=== PATIENT | male | born 1950 | race Caucasian/White ===

== ENCOUNTER → 2017-03-31 | Outpatient (CLI) | payer OTHER ==
[~2017-03-31] VITALS: Ht 177.8 cm; Wt 86.2 kg
[~2017-03-31] MED LIST: AMBIEN 10 MG TA10 MG PO; ATIVAN0.5 MG PO; AZITHROMYCIN 2250 MG PO; CENTRUM SILVER1 EAC4 PO; COUMADIN 5 MG TA5 M1 PO; COZAAR 50 MG TA50 M2 PO; DIOVAN PO; K-DUR 20 MEQ T20 MEQ; K-DUR 20 MEQ T20 MEQ PO; LASIX 40 MG TAB40 M1 PO; LOPRESSOR25 PO; OMEPRAZOLE40 MG PO
--- NOTE | ~2017-03-31 | P ---
[facility] [place] [address] PROCEDURE REPORT Name: RHIANNA HORTON Room #: REG [facility]#: [id number] Admission: 03/31/17 Attend Phys: Christian Hernandez Discharge: Date of : 48 Report #: [id number] THIS REPORT FOR: //name// CC: Christian Bailey DO DATE OF SERVICE: 03/31/2017 PROCEDURE PERFORMED: Colonoscopy with polypectomies. HISTORY OF PRESENT ILLNESS: The patient is a 66-year-old male who presents today for a screening colonoscopy. Denies any symptoms. No family history of colon cancer. DESCRIPTION OF PROCEDURE: The risks and benefits of the procedure were explained to the patient, those risks including but not limited to bleeding, perforation, the risk of sedation. He understood these risks and gave informed consent. Sedation was given using propofol per anesthesia. Next, a digital rectal exam was initially performed, which was normal. Of note, the patient is on Coumadin. This has been held for the last 5 days. His INR today was 1.1. Next, using a standard [employer] colonoscope, the scope was placed in the patient's anus and advanced under direct vision to the cecum. The overall prep was good. In the cecum, a 6 mm sessile polyp was noted. This was removed by snare cautery, otherwise normal. The ileocecal valve was normal. Ascending, transverse and descending colon were all normal. Multiple diverticula were noted in the sigmoid colon. Also, in the sigmoid colon were 2 polyps, one of which was 5 mm in size, also removed by snare cautery. A smaller one was 4 mm in size and removed by cold forceps. The rectal mucosa was normal. On retroflexion, small nonbleeding internal hemorrhoids were noted, otherwise normal colonoscopy. The scope was then withdrawn and the procedure terminated. The patient tolerated the procedure well. IMPRESSION: 1. Three small colonic polyps. 2. Sigmoid diverticulosis. 3. Internal hemorrhoids. 4. Otherwise, normal colonoscopy. RECOMMENDATIONS: 1. Await biopsy results. 2. Repeat colonoscopy in [address] [address] PROCEDURE REPORT Name: RHIANNA HORTON Room #: REG [facility] Bajwa#: [id number] Admission: 03/31/17 Attend Phys: Christian Hernandez Discharge: Date of : 48 Report #: [id number] Thank you for allowing me to participate in his care. <ELECTRONICALLY SIGNED> By: Christian Catalan MD 04/02/17 1359 0934 [id number] Christian Catalan MD /nt
--- NOTE | ~2017-03-31 | S ---
[facility] [place] [address] SURGICAL PATH RPT PROCEDURE Name: RHIANNA HORTON JR Room #: REG [facility] Ashly.#: [id number] Admission: 03/31/17 Date of : 48 Discharge: Report #: [id number] Path Case #: [id number] PATHOLOGY REPORT COLLECTION DATE: 03/31/2017 RECEIVED DATE: 03/31/2017 SUBMITTING PHYS: Dr. Christian Catalan OTHER PHYS: Dr. Coy Bailey SPECIMEN(S) RECEIVED: A.Polyp at cecum B.Polyp at sigmoid x2 * * * * * * * * * * * * FINAL DIAGNOSIS: A. Polyp, polyp at cecum, endoscopic biopsy: - Tubular adenoma. - Negative for high-grade dysplasia. B. Polyp x 2, at sigmoid colon, endoscopic biopsy: - Tubular adenoma admixed with hyperplastic features present in all fragments sampled. - Negative for high-grade dysplasia. (IUV:pit; 04/01/2017) PATHOLOGIST: Cora Gilliam M.D. REPORT ELECTRONICALLY SIGNED BY: Cora Gilliam M.D. DATE/TIME: 04/01/2017 14:45 * * * * * * * * * * * * GROSS PATHOLOGY: A. Received in formalin labeled "Rhianna Horton , polyp at cecum," is a 0.8 x 0.3 x 0.3 cm polypoid piece of kelly soft tissue with a stalk measuring 0.4 cm in length and 0.2 cm in diameter. The margin of the stalk is inked and the tissue is sectioned perpendicular to the margin and submitted in its entirety in cassette A1. B. Received in formalin labeled "Rhianna Horton Jr, polyp at sigmoid colon 2," is a 0.8 x 0.5 x 0.6 cm polypoid piece of kelly soft tissue. The margin is inked and the tissue is sectioned perpendicular to the margin and submitted in its entirety in cassette B1. Also received in same container is a segment of kelly soft tissue measuring 0.5 cm in maximum dimension, which is also submitted in cassette B1. (TSD; 03/31/2017) CLINICAL HISTORY: Pre-OP DX: Screening [address] [place] [address] SURGICAL PATH RPT PROCEDURE Name: RHIANNA HORTON Jeferson PAL Room #: REG [facility] Aydee#: [id number] Admission: 03/31/17 Date of : 48 Discharge: Report #: [id number] Path Case #: [id number] Post-OP DX: Colon polyps, diverticulosis INITIAL CPT CODE(S): A; 27617 B; 77403 Professional services performed by [facility] at [facility] [address] [place] [address] Technical services performed by [facility] at [address] [place] [address], [facility] [address] [address]. [facility] [address] [address] PHONE: [phone] DIRECTOR: Félix Mccarthy M.D. * * * END OF REPORT * * *
[2017-03-31 09:12] LABS: INR 1.1; PROTIME 11.3 Seconds (9.3-11.4)
== END | disposition home or self-care (01) ==
LOC: GI 07:50
PROVIDERS: Specialist
DX: Z12.11 Encounter for screening for malignant neoplasm of colon (principal); D12.0 Benign neoplasm of cecum; D12.5 Benign neoplasm of sigmoid colon; K57.30 Diverticulosis of large intestine without perforation or abscess without bleeding; K64.8 Other hemorrhoids; I10 Essential (primary) hypertension; K21.9 Gastro-esophageal reflux disease without esophagitis; Z85.828 Personal history of other malignant neoplasm of skin; Z98.890 Other specified postprocedural states; Z79.899 Other long term (current) drug therapy; Z95.1 Presence of aortocoronary bypass graft; Z95.2 Presence of prosthetic heart valve; Z79.01 Long term (current) use of anticoagulants
CPT/HCPCS: 62110; 62900

== ENCOUNTER 2017-04-02 07:26 | Inpatient (IN) | payer OTHER ==
[~2017-04-02] VITALS: Ht 177.8 cm; Wt 83.8 kg
--- NOTE | ~2017-04-02 | EKG ---
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 : 1950 Requested By: Sha Taylor Order Number: [id number] MD: Jimmie Broderick Measurements Intervals [place] Rate: 56 P: -16 [place]: 201 QRS: -66 QRSD: 166 T: 35 QT: 500 QTc: 483 Interpretive Statements Sinus rhythm RBBB and LAFB Compared to ECG 08/23/2010 16:33:02 Left anterior fascicular block now present Right bundle-branch block now present ST (T wave) deviation no longer present Prolonged QT interval no longer present Electronically Signed On 04-02-2017 23:00:57 DOWN FILLER by Jimmie Broderick [email or web address] <ELECTRONICALLY SIGNED> By: Jimmie Broderick MD 04/02/17 2300 0954 0954 Jimmie Broderick MD /EPI
--- NOTE | ~2017-04-02 | HC ---
[facility] [place] [address] CONSULTATION Name: RHIANNA HORTON Room #: 364-P [facility]..#: [id number] Admission: 04/02/17 Attend Phys: Coy Engle DO Discharge: 04/05/17 Date of : 48 Report #: [id number] THIS REPORT FOR: //name// CC: GABRIELLE Kennedy DO DATE OF SERVICE: 04/02/2017 HISTORY OF PRESENT ILLNESS: The patient is a 66-year-old male who underwent a colonoscopy by myself on Wednesday for history of polyps. He had been holding his Coumadin 5 days prior to the procedure. He has a history of mechanical mitral valve replacement. At the time of the colonoscopy, a polyp was removed from the cecum and 2 polyps were removed from the sigmoid colon, multiple diverticula were noted. All polyps were removed by snare cautery. There was no bleeding at that time. We discussed him restarting his Coumadin because of his mitral valve replacement and he began taking Lovenox. Yesterday afternoon, he had a bowel movement with some bright red blood and maroon type stools. He has had a total of 3 bloody bowel movements since then. He has not had further one here in the Emergency Room since this morning. His admit hemoglobin was 12.8. His last dose of Lovenox was yesterday. He denies any abdominal pain. He denies any fevers or chills. No chest pain or shortness of breath. ALLERGIES: No known drug allergies. MEDICATIONS AT HOME: Coumadin, omeprazole, metoprolol. He was taking Lovenox, Cozaar, multivitamin. PAST MEDICAL HISTORY: Hypertrophic obstructive cardiomyopathy, history of mitral valve replacement, hypertension, colon polyps, diverticulosis, previous rotator cuff surgery. REVIEW OF SYSTEMS: As per HPI. SOCIAL HISTORY: He denies any tobacco. He reports occasional alcohol use. FAMILY HISTORY: Negative for colon cancer. PHYSICAL EXAMINATION: VITAL SIGNS: Temperature is 97.7, pulse 55, blood pressure 112/32, respiratory rate is 16. GENERAL: He is alert and oriented x 3 in no acute distress. HEENT: Sclerae nonicteric. Oropharynx clear. NECK: Supple, without lymphadenopathy. [address] [address] CONSULTATION Name: RHIANNA HORTON Room #: 364-P [facility] [id number] Admission: 04/02/17 Attend Phys: Coy Engle DO Discharge: 04/05/17 Date of : 48 Report #: [id number] CARDIOVASCULAR: Regular rate with a valve murmur noted. CHEST: Clear to auscultation bilaterally. ABDOMEN: Soft, nontender, nondistended, normoactive bowel sounds. EXTREMITIES: No cyanosis, clubbing or edema. LABORATORY DATA: Sodium 139, potassium 3.8, chloride 104, bicarbonate 28, BUN 22, creatinine 1.4, glucose 112. His INR is 1.2. WBC is 7.0. Admit hemoglobin 12.8, repeat at 12:51 today is 11.4; MCV 88.9; platelet count is 179. ASSESSMENT AND PLAN: Post-polypectomy bleed. The patient had colonoscopy 2 days ago, 3 polyps were removed as described above. Agree with admission. We will monitor hemoglobin. If there is evidence of further bleeding, may need to consider repeat colonoscopy to find bleeding site. I explained to the patient many times these can just spontaneously stop without intervention as well. We will keep a close eye on the patient and monitor his hemoglobin. In the meantime, hold all anticoagulation therapy. The patient understands and agrees with this plan. Thank you for allowing me to participate in his care. <ELECTRONICALLY SIGNED> By: Christian Catalan MD 04/07/17 0840 1416 2338 Christian Catalan MD /nt
[2017-04-02 08:10] VITALS: BP 141/63
[2017-04-02 08:36] LABS: ABSOLUTE NEUTROPHILS 4.6 thou/uL (1.4-8.2); BASOPHILS 1.1 % (0.0-2.0); EOSINOPHILS 4.3 % (0.0-3.0); HEMATOCRIT 37.7 % (42.0-52.0); HEMOGLOBIN 12.8 gm/dL (14.0-18.0); LYMPHOCYTES 19.8 % (24.0-44.0); MCH 30.1 pg (26.0-34.0); MCHC 33.8 g/dL (28.0-37.0); MCV 88.9 fL (80.0-100.0); MONOCYTES 8.6 % (1.0-8.0); PLATELET COUNT 179 thou/uL (150-400); POLYS 66.2 % (36.0-66.0); RBC 4.25 mil/uL (4.50-6.00); RDW 14.1 % (10.5-14.5)
[2017-04-02 08:44] LABS: ANION GAP 7 mmol/L (7-16); BUN 22 mg/dL (7-18); CALCIUM 8.9 mg/dL (8.5-10.1); CHLORIDE 104 mmol/L (98-107); CO2 28 mmol/L (21-32); CREATININE 1.4 mg/dL (0.7-1.3); GLUCOSE 112 mg/dL (74-106); POTASSIUM 3.8 mmol/L (3.5-5.1); SODIUM 139 mmol/L (136-145)
[2017-04-02 08:50] LABS: APTT 31.1 Seconds (24.5-32.8); INR 1.2; PROTIME 11.8 Seconds (9.3-11.4)
[2017-04-02 08:54] LABS: TROPONIN-I < 0.04 ng/mL (<0.06)
[2017-04-02 12:57] LABS: HEMATOCRIT 33.1 % (42.0-52.0); HEMOGLOBIN 11.4 gm/dL (14.0-18.0)
[2017-04-02 17:46] VITALS: BP 126/68
[2017-04-02 18:31] VITALS: BP 153/54
[2017-04-03 03:30] VITALS: BP 111/52
[2017-04-03 10:24] VITALS: BP 120/55
[2017-04-03 10:47] LABS: ABSOLUTE NEUTROPHILS 3.6 thou/uL (1.4-8.2); BASOPHILS 0.6 % (0.0-2.0); EOSINOPHILS 4.4 % (0.0-3.0); HEMATOCRIT 32.5 % (42.0-52.0); HEMOGLOBIN 11.3 gm/dL (14.0-18.0); LYMPHOCYTES 25.3 % (24.0-44.0); MCH 30.6 pg (26.0-34.0); MCHC 34.6 g/dL (28.0-37.0); MCV 88.5 fL (80.0-100.0); MONOCYTES 7.3 % (1.0-8.0); PLATELET COUNT 143 thou/uL (150-400); POLYS 62.4 % (36.0-66.0); RBC 3.68 mil/uL (4.50-6.00); RDW 14.2 % (10.5-14.5); WBC 5.7 thou/uL (4.0-11.0)
[2017-04-03 11:05] LABS: CALCIUM 8.5 mg/dL (8.5-10.1); CREATININE 1.1 mg/dL (0.7-1.3)
[2017-04-03 20:05] VITALS: BP 135/64
[2017-04-04 04:26] VITALS: BP 125/57
[2017-04-04 05:27] LABS: ABSOLUTE NEUTROPHILS 3.8 thou/uL (1.4-8.2); BASOPHILS 0.9 % (0.0-2.0); EOSINOPHILS 5.6 % (0.0-3.0); HEMATOCRIT 31.7 % (42.0-52.0); HEMOGLOBIN 10.9 gm/dL (14.0-18.0); MCH 30.1 pg (26.0-34.0); MCHC 34.4 g/dL (28.0-37.0); MCV 87.7 fL (80.0-100.0); MONOCYTES 8.4 % (1.0-8.0); PLATELET COUNT 134 thou/uL (150-400); POLYS 66.1 % (36.0-66.0); RBC 3.62 mil/uL (4.50-6.00); RDW 13.8 % (10.5-14.5); WBC 5.7 thou/uL (4.0-11.0)
[2017-04-04 05:40] LABS: CALCIUM 8.5 mg/dL (8.5-10.1); CREATININE 1.1 mg/dL (0.7-1.3); POTASSIUM 3.8 mmol/L (3.5-5.1)
[2017-04-04 09:00] VITALS: BP 131/69
[2017-04-04 16:24] VITALS: BP 175/80
[2017-04-04 18:04] VITALS: BP 171/82
[2017-04-04 19:55] VITALS: BP 138/77
[2017-04-05 04:30] VITALS: BP 124/64
[2017-04-05 12:08] VITALS: BP 123/61
[2017-04-05 13:14] VITALS: BP 123/61
== END 2017-04-05 13:49 | disposition home or self-care (01) | DRG 919 ==
LOC: ER 07:26 → 3W 10:40 → EROBS 10:40 → 4S 18:28 → 3W 04-04 05:55
PROVIDERS: Emergency Medicine; Family Medicine
PROC: 0DJ08ZZ Inspection of Upper Intestinal Tract, Via Natural or Artificial Opening Endoscopic (ICD-10-PCS; principal; 2017-04-05)
PROC: 0W3P8ZZ Control Bleeding in Gastrointestinal Tract, Via Natural or Artificial Opening Endoscopic (ICD-10-PCS; principal; 2017-04-05)
DX: K91.840 Postprocedural hemorrhage of a digestive system organ or structure following a digestive system procedure (principal); K57.31 Diverticulosis of large intestine without perforation or abscess with bleeding; E43 Unspecified severe protein-calorie malnutrition; I42.1 Obstructive hypertrophic cardiomyopathy; K63.3 Ulcer of intestine; I10 Essential (primary) hypertension; K64.8 Other hemorrhoids; K21.9 Gastro-esophageal reflux disease without esophagitis; Z95.2 Presence of prosthetic heart valve; Z79.01 Long term (current) use of anticoagulants; Z86.010 Personal history of colon polyps; Z79.899 Other long term (current) drug therapy
CPT/HCPCS: 10100; 10879; 62110; 62900; 70005

== ENCOUNTER 2018-11-26 16:04 | Emergency (ER) | payer OTHER ==
[~2018-11-26] VITALS: Ht 177.8 cm; Wt 83.9 kg
[2018-11-26] MEDS ORDERED: JANTOVEN5 MG PO (16:25)
[2018-11-26 16:42] LABS: BASOPHILS 1.3 % (0.0-2.0); EOSINOPHILS 6.4 % (0.0-3.0); HEMATOCRIT 42.5 % (42.0-52.0); LYMPHOCYTES 25.3 % (24.0-44.0); MCH 29.8 pg (26.0-34.0); MCHC 32.9 g/dL (28.0-37.0); MCV 90.5 fL (80.0-100.0); MONOCYTES 7.8 % (1.0-8.0); PLATELET COUNT 186 thou/uL (150-400); POLYS 59.2 % (36.0-66.0); WBC 6.8 thou/uL (4.0-11.0)
[2018-11-26 16:49] LABS: ANION GAP 8 mmol/L (7-16); BUN 14 mg/dL (7-18); CALCIUM 8.9 mg/dL (8.5-10.1); CHLORIDE 105 mmol/L (98-107); CO2 27 mmol/L (21-32); CREATININE 1.3 mg/dL (0.7-1.3); GLUCOSE 107 mg/dL (74-106); POTASSIUM 4.5 mmol/L (3.5-5.1); SODIUM 140 mmol/L (136-145)
[2018-11-26 16:54] LABS: APTT 36.8 Seconds (24.5-32.8); INR 2.9; PROTIME 29.7 Seconds (9.3-11.4)
[2018-11-26 16:59] LABS: ALBUMIN 4.1 g/dL (3.4-5.0); SGOT 31 U/L (15-37); SGPT 19 U/L (30-65); TOTAL PROTEIN 7.4 g/dL (6.4-8.2); TROPONIN-I <0.06 ng/mL (<0.06)
[2018-11-26 17:22] LABS: AMP/METHAMP Negative (Negative); BARBITURATES Negative (Negative); BENZODIAZEPINES Negative (Negative); COCAINE Negative (Negative); METHADONE Negative (Negative); OPIATES Negative (Negative); PCP Negative (Negative)
[2018-11-26 17:53] VITALS: BP 124/74
--- NOTE | 2018-11-27 14:24 | EKG ---
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: : 1950 Requested By: Indio Martinez Order Number: [id number] MD: Miles Osman Measurements Intervals [place] Rate: 125 P: [place]: QRS: -89 QRSD: 156 T: 38 QT: 397 QTc: 573 Interpretive Statements Atrial flutter with 2:1 AV block RBBB and LAFB Compared to ECG 04/02/2017 09:54:50 Atrial flutter has replaced sinus bradycardia Electronically Signed On 11-27-2018 14:23:48 CDT by Miles Osman [email or web address] ��������������������������������������������� <ELECTRONICALLY SIGNED> ���������������������������������������� By: Miles Osman MD, [facility] ��������������������������������������������� 11/27/18 1423 1615 1615 Miles Osman MD, [facility] /EPI
== END 2018-11-26 17:50 | disposition home or self-care (01) ==
LOC: ER 16:04
PROVIDERS: Emergency Medicine
DX: I48.92 Unspecified atrial flutter (principal); I10 Essential (primary) hypertension; K21.9 Gastro-esophageal reflux disease without esophagitis

== ENCOUNTER → 2018-12-20 | Outpatient (CLI) | payer OTHER ==
[~2018-12-20] VITALS: Ht 177.8 cm; Wt 83.9 kg
[~2018-12-20] MED LIST changes: +COUMADIN 1MG TAB1 M1 PO; +JANTOVEN5 MG PO; +LOSARTAN-HCTZ1 EACH PO
[2018-12-20 07:03] VITALS: BP 139/80
--- NOTE | 2018-12-20 15:43 | EKG ---
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: [facility] 1950 Requested By: Miles Osman Order Number: [id number] MD: Marques Jarquin Measurements Intervals [place] Rate: 50 P: -19 PA: 212 QRS: -58 QRSD: 165 T: -31 QT: 495 QTc: 452 Interpretive Statements Sinus rhythm Supraventricular bigeminy Borderline prolonged PA interval RBBB and LAFB Compared to ECG 11/26/2018 16:15:44 Electronically Signed On 12-20-2018 15:43:11 CDT by Marques Jarquin [email or web address] <ELECTRONICALLY SIGNED> By: Marques Jarquin MD 12/20/18 1543 2 2 Marques Jarquin MD /EPI
--- NOTE | 2018-12-23 07:30 | CATHLAB ---
[facility] [address] [place] [address] INVASIVE PROCEDURE REPORT Name: RHIANNA HORTON Room #: REG [facility]#: [id number] Admission: 12/20/18 Attend Phys: Miles Osman, Discharge: Date of : 48 Report #: [id number] THIS REPORT FOR: //name// CC: Miles Bailey DATE OF SERVICE: 12/20/2018 PROCEDURE: Cardioversion. INDICATION: Atrial fibrillation. DESCRIPTION OF PROCEDURE: The potential benefits and risks of the procedure were discussed at length with the patient who understood. Full written and informed consent was obtained. The patient was brought into the Cardiology holding area where continuous monitoring was performed. Full written and informed consent was obtained. He was sedated with intravenous Versed and fentanyl and 120 biphasic joules were applied to the chest with prompt conversion of atrial fibrillation to sinus rhythm. He remained in hemodynamically, electrically and neurologically stable condition following the procedure. SUMMARY: Successful cardioversion of atrial fibrillation to sinus rhythm following a single biphasic synchronous joule shock. <ELECTRONICALLY SIGNED> By: Miles Osman MD, [facility] 12/23/18 0730 0751 224 Miles Osman MD, FACC /nt
== END | disposition home or self-care (01) ==
LOC: CATH 06:39
DX: I48.91 Unspecified atrial fibrillation (principal); I11.0 Hypertensive heart disease with heart failure; I50.9 Heart failure, unspecified; I42.9 Cardiomyopathy, unspecified; E78.5 Hyperlipidemia, unspecified; K21.9 Gastro-esophageal reflux disease without esophagitis; Z98.890 Other specified postprocedural states; Z79.01 Long term (current) use of anticoagulants; Z95.2 Presence of prosthetic heart valve; Z79.899 Other long term (current) drug therapy

== ENCOUNTER → 2019-06-12 | Outpatient (CLI) | payer OTHER | LOC: SJCVC 09:39 | PROVIDERS: ATTEND Internal Medicine | DX: I45.2 Bifascicular block (principal); I44.30 Unspecified atrioventricular block; I48.3 Typical atrial flutter; R94.31 Abnormal electrocardiogram [ECG] [EKG]; I42.2 Other hypertrophic cardiomyopathy; I10 Essential (primary) hypertension; E78.5 Hyperlipidemia, unspecified; Z95.2 Presence of prosthetic heart valve; Z79.01 Long term (current) use of anticoagulants; Z79.899 Other long term (current) drug therapy ==

== ENCOUNTER → 2019-12-13 | Outpatient (CLI) | payer OTHER | LOC: SJCVC 10:04 | PROVIDERS: ATTEND Internal Medicine | DX: I45.2 Bifascicular block (principal); R94.31 Abnormal electrocardiogram [ECG] [EKG]; R00.1 Bradycardia, unspecified; I42.2 Other hypertrophic cardiomyopathy; I48.3 Typical atrial flutter; I10 Essential (primary) hypertension; E78.5 Hyperlipidemia, unspecified; Z95.2 Presence of prosthetic heart valve; Z79.899 Other long term (current) drug therapy ==

== ENCOUNTER → 2020-06-18 | Outpatient (CLI) | payer OTHER | LOC: SJCVCIMAG 08:22 | PROVIDERS: ATTEND Internal Medicine | DX: R94.31 Abnormal electrocardiogram [ECG] [EKG] (principal); I08.1 Rheumatic disorders of both mitral and tricuspid valves; I45.2 Bifascicular block; R00.1 Bradycardia, unspecified; I44.0 Atrioventricular block, first degree; I42.2 Other hypertrophic cardiomyopathy; I48.3 Typical atrial flutter; I11.0 Hypertensive heart disease with heart failure; E78.5 Hyperlipidemia, unspecified; K21.9 Gastro-esophageal reflux disease without esophagitis; Z95.2 Presence of prosthetic heart valve; Z79.01 Long term (current) use of anticoagulants; Z79.899 Other long term (current) drug therapy; Z72.89 Other problems related to lifestyle ==

== ENCOUNTER → 2020-07-24 | Outpatient (CLI) | payer OTHER | LOC: SJCVC 10:20 | PROVIDERS: ATTEND Internal Medicine | DX: I35.1 Nonrheumatic aortic (valve) insufficiency (principal); I42.2 Other hypertrophic cardiomyopathy; I45.2 Bifascicular block; I48.3 Typical atrial flutter; I35.2 Nonrheumatic aortic (valve) stenosis with insufficiency; I10 Essential (primary) hypertension; E78.5 Hyperlipidemia, unspecified; K21.9 Gastro-esophageal reflux disease without esophagitis; Z72.89 Other problems related to lifestyle; Z95.2 Presence of prosthetic heart valve; Z79.01 Long term (current) use of anticoagulants; Z79.899 Other long term (current) drug therapy ==

== ENCOUNTER 2020-08-05 06:21 | Inpatient (IN) | payer OTHER ==
[2020-08-05] VITALS (14 sets, daily range): BP systolic 120–141; BP diastolic 49–67
[~2020-08-05] VITALS: Ht 177.8 cm; Wt 82.6 kg
[~2020-08-05 06:21] MED LIST changes: -LOPRESSOR25 PO; +LOPRESSOR50 PO
[2020-08-05 07:33] LABS: ABSOLUTE NEUTROPHILS 3.5 thou/uL (1.4-8.2); BASOPHILS 0.7 % (0.0-2.0); EOSINOPHILS 8.6 % (0.0-3.0); HEMATOCRIT 40.1 % (42.0-52.0); HEMOGLOBIN 13.4 gm/dL (14.0-18.0); LYMPHOCYTES 19.8 % (24.0-44.0); MCH 29.6 pg (26.0-34.0); MCHC 33.5 g/dL (28.0-37.0); MCV 88.1 fL (80.0-100.0); PLATELET COUNT 176 thou/uL (150-400); POLYS 62.9 % (36.0-66.0); RBC 4.55 mil/uL (4.50-6.00); RDW 14.4 % (10.5-14.5); WBC 5.6 thou/uL (4.0-11.0)
[2020-08-05] MEDS ORDERED: WARFARIN SODIUM6 MG PO (07:35)
[2020-08-05 07:43] LABS: CALCIUM 8.7 mg/dL (8.5-10.1); CREATININE 1.4 mg/dL (0.7-1.3); POTASSIUM 4.1 mmol/L (3.5-5.1)
[2020-08-05 07:47] LABS: APTT 32.8 Seconds (24.5-32.8); INR 2.03; PROTIME 21.4 Seconds (10.5-12.1)
[2020-08-05 07:48] LABS: ALBUMIN 3.7 g/dL (3.4-5.0); TOTAL BILIRUBIN 1.1 mg/dL (0.2-1.0); TOTAL PROTEIN 6.8 g/dL (6.4-8.2)
--- NOTE | 2020-08-05 09:32 | TEE ---
[facility] [place] [address] TRANSESOPHAGEAL ECHOCARDIOGRAM Name: RHIANNA HORTON JR Room #: REG [facility]#: [id number] Admission: 08/05/20 Attend Phys: Marques Jarquin MD Discharge: Date of : 48 Report #: [id number] THIS REPORT FOR: cc: Coy Bailey James A. DO Lundgren, Craig H. MD [facility] ~ APPROVED REPORT Study performed: 08/05/2020 08:22:10 EXAM: Comprehensive 2D, Doppler, and color-flow Echocardiogram Patient Location: Out-Patient Room #: EP Status: routine BSA: 12.07 HR: 84 bpm Other Information Study Quality: Good Indications Atrial Fibrillation Echo Enhancing Agent Indication: Rule out Shunt Agent(s) / Amount(s) Used: Agitated Saline 7 cc Procedure After obtaining informed consent, patient underwent transesophageal echo in the EP Lab. Type of Sedation : Conscious Sedation Sedation was administered by Anesthesiologist. Sedation start time: 824 Case end Time: 832 Sedation was achieved intravenously with: Versed (1 mg) Fentanyl (50 mcg) Propofol (100 mcg) Transesophageal probe was inserted and advanced into esophagus without difficulty by Miles Osman MD. Echo enhancement indication: R/O Septal defect. Echo enhancement agent administered: Agitated Saline The FRIEDA was performed without complications. Throughout the procedure, the blood pressure, pulse oximetry, cardiac rhythm, and rate were monitored. [facility] [address] [address] TRANSESOPHAGEAL ECHOCARDIOGRAM Name: RHIANNA HORTON Room #: REG [facility].#: [id number] Admission: 08/05/20 Attend Phys: Marques Jarquin Discharge: Date of : 48 Report #: [id number] The patient tolerated the procedure without adverse effects. Recovery from conscious sedation was uneventful and vital signs were stable. Left Ventricle The left ventricle is normal size. There is normal LV segmental wall motion. Mild concentric left ventricular hypertrophy. The left ventricular systolic function is normal. The left ventricular ejection fraction is within the normal range. LVEF is 55-60%. Right Ventricle The right ventricle is normal size. The right ventricular systolic function is normal. Atria Left atrium is dilated. No thrombus is visualized in the left atrium or appendage. No shunting by contrast bubble injection Right atrium is dilated. Aortic Valve The aortic valve is mildly calcified, trileaflet Mild to moderate aortic regurgitation. There is no aortic valvular stenosis. Mitral Valve There is a bi-leaflet ([place]) mechanical prosthesis of the mitral valve. Trace mitral regurgitation. No evidence of mitral valve stenosis. Tricuspid Valve The tricuspid valve is normal in structure. There is no tricuspid valve regurgitation noted. Pulmonic Valve The pulmonary valve is normal in structure. There is no pulmonic valvular regurgitation. Great Vessels The aortic root is normal in size. IVC is normal in size and collapses >50% with inspiration. Pericardium There is no pericardial effusion. <Conclusion> The left ventricular systolic function is normal. There is normal LV segmental wall motion. [facility] [address] [place] [address] TRANSESOPHAGEAL ECHOCARDIOGRAM Name: RHIANNA HORTON Room #: REG Aydee#: [id number] Admission: 08/05/20 Attend Phys: Marques [facility] Discharge: Date of : 48 Report #: [id number] LVEF is 55-60%. Both atria are dilated. No thrombus is visualized in the left atrium or appendage. No shunting by contrast bubble injection The aortic valve is mildly calcified, trileaflet. Mild to moderate aortic regurgitation, no stenosis. There is a bi-leaflet ([place]) mechanical prosthesis of the mitral valve. Trace mitral regurgitation, no stenosis. There is no pericardial effusion. <ELECTRONICALLY SIGNED> By: Miles Osman MD, [facility] 08/05/20931 1 1 Miles Osman MD, FAC /INF
--- NOTE | 2020-08-05 17:48 | NUR ---
PT CARE ASSUMED AT 1120. ASSESSMENTS CHARTED. MEDICATIONS CHARTED. RAC IV. SINUS BRADYCARDIA. NPO AFTER 0000. AFLUTTER ABLATION; RT GROIN, STOPCOCK WITH REMOVAL AT 1200. HEMOSTASIS AT 1000, BEDREST UNTIL 1400. FRIEDA DONE PRIOR TO ABLATION, NO CLOTS. PACEMAKER PROCEDURE PLANNED FOR AM. HIBICLENS SCRUB NEEDED AT 0400.
[2020-08-06 03:50] VITALS: BP 124/66
[2020-08-06 05:40] LABS: INR 1.93; PROTIME 20.4 Seconds (10.5-12.1)
[2020-08-06 07:55] VITALS: BP 128/66
--- NOTE | 2020-08-06 10:47 | NUR ---
ASSESSMENT: CM REVIEWED CHART AND MET WITH PATIENT AT THE BEDSIDE. PT IS S/P ABLATION AND PLANS FOR PACEMAKER TODAY. PT IS ALERT AND ORIENTED X4. PT REPORTS LIVING IN A CONDO ALONE. PT REPORTS NO STEPS TO ENTER AND HAS AN ELEVATOR. PT STATES HIS BROTHER LIVES A COUPLE BLOCKS AWAY AND CAN ASSIST HIM IF NEEDED. PT REPORTS HE IS FULLY INDEPENDENT WITH ADLS AND AMBULATION. PT DENIES HAVING HH IN THE PAST OR SNF. PT STATING HE HAS NO DME OR THE NEED FOR IT. PT STATES DR. SHI IS STILL HIS PCP. CM DISCUSSED ROLE. PT DOES NOT ANTICIPATE HAVING ANY NEEDS FROM CM. CM WILL CONTINUE TO FOLLOW TO ASSIST NEEDED.
[2020-08-06 15:15] VITALS: BP 140/55
--- NOTE | 2020-08-06 16:36 | NUR ---
ASSEESMENT CHARTED - MEDS PER MAY - SCOTTY DIET AND FLUIDS. PT REMIANS ON BEDREST AT THE PRESENT TIME POST PACER PLACEMENT. IV FLUIDS INFUSING ORDERED. PT WITH NO CO'S OF PAIN OR NAUSEA. LEFT ARM IN IMMOBILIZER. PT HAS BEEN DOSISNG THIS AFTERNOON POST PROCEDURE. NO CO'S AT HE PRESENT TIME.
[2020-08-06 19:20] VITALS: BP 138/60
[2020-08-07 04:25] VITALS: BP 134/55
[2020-08-07 04:59] LABS: INR 2.3; PROTIME 23.8 Seconds (9.3-11.4)
[2020-08-07 07:27] VITALS: BP 140/66
[2020-08-07 11:37] VITALS: BP 115/49
[2020-08-07 11:47] VITALS: BP 115/49
--- NOTE | 2020-08-08 16:28 | P ---
[facility] [place] [address] PROCEDURE REPORT Name: RHIANNA HORTON JR Room #: 215-P [facility] IN M.R.#: [id number] Admission: 08/05/20 Attend Phys: Marquse Jarquin MD Discharge: 08/07/20 Date of : 48 Report #: [id number] THIS REPORT FOR: cc: Coy Bailey James A. DO Couchonnal, Luis F. MD ~ DOC #: [id number] Marques Jarquin MD DATE OF SERVICE: 08/05/2020 PREOPERATIVE DIAGNOSIS: Atrial flutter. POSTOPERATIVE DIAGNOSES: 1. Typical atrial flutter. 2. Sick sinus syndrome. 3. AV node disease. PROCEDURE PERFORMED: 1. SVT ablation, CPT code 18123. 2. Three EP with left atrial pacing recordings, CPT code 70758. 3. Intracardiac echo, CPT code 98489. 4. Three mapping, CPT code 01880. HISTORY: The patient is a 70-year-old male with a history of hypertrophic cardiomyopathy, severe MR, status post mechanical mitral valve, who has had recurrent atrial flutter and also has problems with symptomatic bradycardia and trifascicular block. He is here for atrial flutter ablation. ANESTHESIA: The patient underwent MAC anesthesia with no anesthesia related complications. INDICATIONS: The patient underwent informed consent. We discussed the details of the procedure including the risks, which include but not limited to bleeding, vascular damage, stroke, PA, cardiac perforation as well as damage to the [place] conduction system. He understood these risks and is willing to proceed. DESCRIPTION OF PROCEDURE: The patient was brought to the EP laboratory in a fasting and sedated state and prepped and draped in a sterile fashion. I obtained access to the right femoral vein x 3, placing a 8, 9 and 7-Occitan short sheath using the modified Seldinger technique. Next, under fluoroscopy, a decapolar catheter was placed easily in the coronary sinus for left atrial pacing and recording. An ICE catheter was placed in the right atrium, which showed a somewhat thickened interatrial septum with 2 left and 2 right pulmonary veins. Of note, prior to the ablation, he did undergo a FRIEDA that showed no evidence of left atrial appendage thrombus. [address] [address] PROCEDURE REPORT Name: RHIANNA HORTON JR Room #: 215-P ON LICENSE OF [facility]#: [id number] Admission: 08/05/20 Attend Phys: Marques Jarquin MD Discharge: 08/07/20 Date of : 48 Report #: [id number] At baseline, the patient was in atrial flutter with a ventricular cycle length of 615 milliseconds, an atrial cycle length of 290 milliseconds with a proximal to distal activation along the coronary sinus and negative sawtooth flutter waves in the inferior leads. His QRS duration was 161 milliseconds with a right bundle branch block and a left anterior fascicular block. His QT interval was 477 milliseconds. Next, a ramp sheath, an 8 mm ablation catheter were placed in the right atrium. Next, a 3D geometry and activation of the atrial flutter was created and this was consistent with cavotricuspid isthmus-dependent flutter. The PPI minus tachycardia cycle length pacing from 6 o'clock along the tricuspid annulus was 14 milliseconds consistent with cavotricuspid isthmus-dependent flutter. Atrial flutter ablation. Next, using an 8 mm ablation catheter via the ramp sheath, ablation was performed at 70 lord and 60 degrees at 6 o'clock along the cavotricuspid isthmus. A continuous drag lesion was performed and the cycle length of the tachycardia continued to increase as we ablated and then there was acute termination. The patient did have a long conversion pause of around 3-5 seconds. Next, a basic EP study was performed. The transisthmus conduction time after ablation was 175 milliseconds. Pacing from either CS 9, 10 or from ablation, the ablation catheter, lateral and medial to the ablation site. The activation sequence was consistent with bidirectional block. Next, after the patient was now in sinus, I could find His bundle signal. The AH interval was 135 milliseconds and the HV interval was 65-70 milliseconds. Next, atrial burst pacing was performed and AV block was noted at 490 milliseconds. AV kelsey ERP was noted at 420 milliseconds at a [address] cycle length and with single atrial extrastimuli, the patient would have long sinus node recovery times of 3-5 seconds. Next, I performed several SNRTs and pacing at 400 milliseconds for 1 minute resulted in a sinus node recovery time of 8.7 seconds. This was reproducible at other cycle lengths. In fact, this sinus node recovery time was actually a junctional escape and the true sinus node did not reactivate for about 15 seconds. I retested and there was still evidence of bidirectional block and post-ablation, the patient was in sinus rhythm with a sinus cycle length of 1355 milliseconds, NM interval 260 milliseconds, QRS duration 175 milliseconds and the QT interval of 509 milliseconds. Using intracardiac ultrasound, I verified there was no pericardial effusion. Catheters and sheaths were pulled and hemostasis was obtained with a [id number] suture and a 3-way stopcock technique utilized. There were no procedural complications and no significant bleeding. CONCLUSION: 1. Successful ablation of cavotricuspid isthmus-dependent flutter with evidence of bidirectional block. 2. Evidence of severe sinus node dysfunction with a sinus node recovery time of 8.7 seconds. 3. Evidence of infra-Hisian disease with an HV interval of 65-70 milliseconds [facility] [address] [place] [address] PROCEDURE REPORT Name: RHIANNA HORTON Room #: 215-P [facility] IN M.R.#: [id number] Admission: 08/05/20 Attend Phys: Marques Jarquin MD Discharge: 08/07/20 Date of : 48 Report #: [id number] with the preexisting trifascicular block. 4. No other inducible arrhythmias post-ablation. RECOMMENDATIONS: 1. The patient will be admitted to the hospital. 2. We will discuss dual chamber pacemaker implantation with the patient to likely be performed tomorrow. Marques Jarquin MD [facility] <ELECTRONICALLY SIGNED> By: Marques Jarquin MD 08/08/20 1628 [id number] Marques Jarquin MD /nt
--- NOTE | 2020-08-08 16:29 | D ---
[facility] [place] [address] DISCHARGE SUMMARY Name: RHIANNA HORTON JR Room #: 215-P [facility] IN M.R.#: [id number] Admission: 08/05/20 Attend Phys: Marques Jarquin MD Discharge: 08/07/20 Date of : 48 Report #: [id number] THIS REPORT FOR: cc: Coy Bailey James A. DO Couchonnal, Luis F. MD ~ DOC #: [id number] Marques Jarquin MD DATE OF SERVICE: 08/07/2020 DATE OF ADMISSION: 08/05/2020 DATE OF DISCHARGE: 08/07/2020 DIAGNOSES: 1. Severe mitral regurgitation, status post prior mitral valve repair. 2. Atrial flutter. 3. Sick sinus syndrome. 4. Infra-Hisian disease. HOSPITAL COURSE: The patient is a 70-year-old male with a history of a prior mitral valve repair, who has had recurrent atrial flutter and was here for atrial flutter ablation. He underwent successful atrial flutter ablation and post-procedure basic EP study was performed and showed that he did have evidence of severe sick sinus syndrome and a moderate to severe Infra-Hisian disease and based on these findings, I decided to admit him and keep him for pacemaker implantation. He underwent pacemaker implantation on 08/06/2020 and post-procedure, his device was checked and found to be within normal limits. His chest x-ray showed stable lead position with no pneumothorax. His INR on the day of discharge was 2.3. As such, he was deemed stable for discharge home. On exam, his heart was a regular rate and rhythm with mechanical S1, S2. Lungs were clear bilaterally. EXTREMITIES: No clubbing, cyanosis or edema and his incision was healing nicely with no significant bruising or hematoma. As such, he was deemed stable for discharge home. Discharge instructions were reviewed including do not get the incision wet for a week, no driving for a week. No lifting left elbow above the shoulder for 6 weeks, no lifting more than 10 pounds with left arm for 6 weeks. I instructed him to take 7 mg of warfarin today and then resume his standard warfarin dosing regimen the following day. He can resume his beta blockers and other outpatient cardiac medications. I recommended that he check his INR on Wednesday. I will see him in the office in 7-10 days for a site check. Marques Jarquin MD [facility]/[address] [address] DISCHARGE SUMMARY Name: RHIANNA HORTON Room #: 215-P [facility].#: [id number] Admission: 08/05/20 Attend Phys: Marques Jarquin MD Discharge: 08/07/20 Date of : 48 Report #: [id number] <ELECTRONICALLY SIGNED> By: Marques Jarquin MD 08/08/20 1629 [id number] Marques Jarquin MD /nt
== END 2020-08-07 12:45 | disposition home or self-care (01) | DRG 243 ==
LOC: CATH 06:21 → 2N 11:43 → CATH 12:30 → 2N 08-07 12:45
PROVIDERS: ADMIT Internal Medicine Cardiovascular Disease; ATTEND Internal Medicine Cardiovascular Disease
PROC: 02K83ZZ Map Conduction Mechanism, Percutaneous Approach (ICD-10-PCS; principal; 2020-08-05)
PROC: 4A0234Z Measurement of Cardiac Electrical Activity, Percutaneous Approach (ICD-10-PCS; principal; 2020-08-05)
PROC: 4A023FZ Measurement of Cardiac Rhythm, Percutaneous Approach (ICD-10-PCS; principal; 2020-08-05)
PROC: 02563ZZ Destruction of Right Atrium, Percutaneous Approach (ICD-10-PCS; principal; 2020-08-05)
PROC: B24BZZ4 Ultrasonography of Heart with Aorta, Transesophageal (ICD-10-PCS; 2020-08-05)
PROC: B5171ZZ Fluoroscopy of Left Subclavian Vein using Low Osmolar Contrast (ICD-10-PCS; 2020-08-06)
PROC: 0JH606Z Insertion of Pacemaker, Dual Chamber into Chest Subcutaneous Tissue and Fascia, Open Approach (ICD-10-PCS; 2020-08-06)
PROC: 02HK3JZ Insertion of Pacemaker Lead into Right Ventricle, Percutaneous Approach (ICD-10-PCS; 2020-08-06)
PROC: 02H63JZ Insertion of Pacemaker Lead into Right Atrium, Percutaneous Approach (ICD-10-PCS; 2020-08-06)
DX: I49.5 Sick sinus syndrome (principal); I48.92 Unspecified atrial flutter; I34.0 Nonrheumatic mitral (valve) insufficiency; Z20.822 Contact with and (suspected) exposure to COVID-19
CPT/HCPCS: 10081; 62110; 62900; 70005

== ENCOUNTER → 2020-10-29 | Outpatient (CLI) | payer OTHER ==
[~2020-10-29] MED LIST changes: +WARFARIN SODIUM6 MG PO
== END ==
LOC: SJCVC 15:31
PROVIDERS: ATTEND Internal Medicine
DX: R94.31 Abnormal electrocardiogram [ECG] [EKG] (principal); I45.2 Bifascicular block; K21.9 Gastro-esophageal reflux disease without esophagitis; I48.3 Typical atrial flutter; I42.2 Other hypertrophic cardiomyopathy; Z95.0 Presence of cardiac pacemaker; Z79.899 Other long term (current) drug therapy; Z79.01 Long term (current) use of anticoagulants; Z72.89 Other problems related to lifestyle